=== PATIENT | male | born 1990 | race Asian ===

== ENCOUNTER 2020-10-18 18:50 | Emergency (ER) | payer BC, OTHER ==
[~2020-10-18] VITALS: Ht 172.7 cm; Wt 99.1 kg
[2020-10-18] MEDS ORDERED: BENZONATATE 100 MG CAPSULE PO ONE (20:00)
[2020-10-18] MEDS ORDERED: BENZONATATE 100 MG CAPSULE ONE (20:00)
[2020-10-18 21:00] VITALS: BP 135/76
--- NOTE | 2020-10-18 21:01 | NUR ---
Patient given discharge instructions and they have confirmed that they understand the instructions. Patient ambulatory with steady gait. nad, denies additional questions or needs, no personal belongings left in room after dc.
== END 2020-10-18 21:03 | disposition home or self-care (01) ==
LOC: ED 20:44
DX: R05 Cough (principal); Z20.822 Contact with and (suspected) exposure to COVID-19
CPT/HCPCS: 71045; 87635; 99284

== ENCOUNTER 2020-11-21 10:19 | Emergency (ER) | payer OTHER ==
[~2020-11-21] VITALS: Ht 172.7 cm; Wt 96.5 kg
--- NOTE | 2020-11-21 11:05 | NUR ---
pt presents to ED with c/o cough x 3 days. pt attached to bp and spo2 monitors. call light in reach. covid swab collected and walked to lab. pt to be dc'd.
[2020-11-21 12:13] VITALS: BP 137/85
--- NOTE | 2020-11-21 12:19 | NUR ---
late entry d/t patient care: pt given dc instructions and script, educated regarding dc rx for albuterol, azithromycin, and prednisone, verbalizes instructions. pt a&o, resps even and unlabored, spo2 >95% on room air. pt ambulatory to dc desk with steady gait. all questions answered.
== END 2020-11-21 12:19 | disposition home or self-care (01) ==
LOC: ED 10:50
DX: B34.9 Viral infection, unspecified (principal); Z20.822 Contact with and (suspected) exposure to COVID-19
CPT/HCPCS: 99283; U0003

== ENCOUNTER 2021-05-08 11:15 | Emergency (ER) | payer OTHER ==
[~2021-05-08] VITALS: Ht 172.7 cm; Wt 91.0 kg
--- NOTE | 2021-05-08 12:07 | NUR ---
MAIL EXAMINER NOTE: EKG TAKEN IN TRIAGE FOR PT C/O LIGHTHEADEDNESS. NEURO INTACT.
--- NOTE | 2021-05-08 12:22 | NUR ---
TASK RN NOTE: COVID SWAB COLLECTED BY [facility], SAMPLE WALKED TO LAB BY THIS RN.
[2021-05-08 12:49] LABS: BASOPHILS % (AUTO) 0 % (0-1); EOSINOPHILS % (AUTO) 0 % (1-7); LYMPHOCYTES % (AUTO) 18 % (22-44); MEAN CORPUSCULAR HEMOGLOBIN 29.1 pg (27.5-34.5); MEAN CORPUSCULAR HGB CONC 33.8 g/dL (33.2-36.2); MEAN PLATELET VOLUME 7.7 fL (7.4-10.4); MONOCYTES % (AUTO) 11 % (2-9); NEUTROPHILS % (AUTO) 71 % (42-75); PLATELET COUNT 252 x10^3/uL (130-400); RED BLOOD COUNT 5.53 x10^6/uL (4.38-5.82); RED CELL DISTRIBUTION WIDTH 13.1 % (9.4-14.8)
[2021-05-08 12:58] LABS: ALANINE AMINOTRANSFERASE 20 U/L (12-78); ALBUMIN 4.4 g/dL (3.4-5.0); ANION GAP 6 mmol/L (5-15); CALCIUM 8.7 mg/dL (8.5-10.1); CHLORIDE 105 mmol/L (98-107); CREATININE 1.41 mg/dL (0.7-1.3)
[2021-05-08 13:00] LABS: ALKALINE PHOSPHATASE 101 U/L (45-117); BILIRUBIN,TOTAL 0.2 mg/dL (0.2-1.0); TOTAL PROTEIN 8.5 g/dL (6.4-8.2)
[2021-05-08 20:01] VITALS: BP 136/96
== END 2021-05-08 20:14 | disposition home or self-care (01) ==
LOC: ED 12:00
DX: U07.1 COVID-19 (principal); B34.9 Viral infection, unspecified; J02.9 Acute pharyngitis, unspecified; N28.9 Disorder of kidney and ureter, unspecified; R94.31 Abnormal electrocardiogram [ECG] [EKG]
CPT/HCPCS: 36415; 71045; 80053; 83605; 84145; 85025; 87040; 93005; 99285; U0003; U0005